=== PATIENT | female | born 1965 | race Caucasian/White ===

== ENCOUNTER 2025-01-15 17:17 | Emergency (ER) | payer SELFPAY ==
[2025-01-15] VITALS (29 sets, daily range): BP systolic 113–198; BP diastolic 76–126
[2025-01-15 17:41] LABS: % Basophils 0.3 % (0-2); % Eosinophils 0.1 % (0-6); % Immature Granulocytes 0.5 % (0-0.5); % Lymphocytes 4.4 % (20.5-51.1); % Monocytes 7.1 % (1.7-9.3); % Neutrophils 87.6 % (42.2-75.2); Absolute Lymphocytes 0.4 10^3/uL (1.2-3.4); Absolute Monocytes 0.6 10^3/uL (0.1-0.6); Absolute Neutrophils 7.8 10^3/uL (1.4-6.5); Hematocrit 35.7 % (37.0-47.0); Hemoglobin 12.8 g/dL (12.0-16.0); Mean Corp Hgb Conc. 35.9 g/dL (33.0-37.0); Mean Corpuscular Volume 94.7 fL (81.0-99.0); Mean Platelet Volume 8.8 fL (7.4-10.4); Nucleated Red Blood Cells % 0 %; Platelet Count 146 10^3/uL (130-400); Red Blood Cell Count 3.77 10^6/uL (4.20-5.40); Red Cell Dist. Width 12.5 % (11.5-14.5); White Blood Cell Count 8.9 10^3/uL (4.8-10.8)
[2025-01-15 17:59] LABS: ALT (SGPT) 36 U/L (0-35); AST (SGOT) 106 U/L (14-36); Albumin 4.9 g/dl (3.5-5.0); Alkaline Phosphatase 129 U/L (38-126); Blood Urea Nitrogen 7 mg/dl (7-17); Calcium 9.7 mg/dl (8.4-10.2); Carbon Dioxide 23 mmol/L (22-30); Chloride 99 mmol/L (98-107); Estimated Creatinine Clearance 82 ml/min; Glucose 137 mg/dl (70-99); Potassium 3.2 mmol/L (3.5-5.1); Sodium 134 mmol/L (135-145); Total Bilirubin 1.5 mg/dl (0.2-1.3); Total Protein 8.2 g/dl (6.3-8.2); eGFR > 60.00
[2025-01-15 18:01] LABS: Alcohol None Detected
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
[2025-01-15] MEDS: ATIVAN 0.5 MG IV (18:44)
[2025-01-15 19:20] LABS: Amphetamines Negative (Negative); Barbiturates Negative (Negative); Benzodiazepines Negative (Negative); Buprenorphine Negative (Negative); Cocaine Negative (Negative); Marijuana Negative (Negative); Methadone Negative (Negative); Methamphetamines Negative (Negative); Opiates Negative (Negative); Phencyclidine Negative (Negative); Tricyclic Antidepressants Negative (Negative)
[2025-01-15] MEDS: COZAAR 50 MG PO (19:42)
[2025-01-15] MEDS: NSS 1000 IV (19:43)
--- NOTE | 2025-01-15 20:29 | PHANOTE ---
med rec note- patient unable to stay awake during interview, no ecw and only one pharmacy fill
[2025-01-15] MEDS: TRANDATE 10 MG IV (20:35)
[2025-01-15] MEDS: CARDENE 200 IV (21:48)
[2025-01-15 22:33] LABS: INR 1.02; PT 13.7 Sec (11.4-14.6)
[2025-01-15] MEDS: ATIVAN 1 MG IV (23:26)
[2025-01-15] MEDS: FLUSH (NSS) 1 FLUSH IV (23:27)
[2025-01-16] VITALS (7 sets, daily range): BP systolic 121–137; BP diastolic 74–89
== END 2025-01-16 00:31 | disposition short-term general hospital (02) ==
LOC: EMR 17:17
PROVIDERS: Emergency Medicine; Registered Nurse; EMERGENCY PHYSICIAN Emergency Medicine; FAMILY PHYSICIAN Family Medicine
DX: S06.6XAA Traumatic subarachnoid hemorrhage with loss of consciousness status unknown, initial encounter (principal); M25.551 Pain in right hip; V43.52XA Car driver injured in collision with other type car in traffic accident, initial encounter; Y92.481 Parking lot as the place of occurrence of the external cause; I10 Essential (primary) hypertension; E78.00 Pure hypercholesterolemia, unspecified; R00.0 Tachycardia, unspecified
CPT/HCPCS: 99291; 99292; 96374; 96375; 96376; 96361; 70450; 70496; 73502; 80053; 80306; 82077; 85025; 85610; 86850; 86900; 86901; 93005; Q9967